=== PATIENT | female | born 1970 | race Two or more races ===

== ENCOUNTER 2024-02-27 08:55 | Outpatient (CLI) | payer OTHER | END 2024-02-27 09:00 | disposition home or self-care (01) | LOC: SONOGRAMA 08:55 | PROVIDERS: ATTEND Pathology Anatomic Pathology & Clinical Pathology | DX: D34 Benign neoplasm of thyroid gland (principal); E06.3 Autoimmune thyroiditis; E03.4 Atrophy of thyroid (acquired) ==

== ENCOUNTER 2025-05-06 11:46 | Outpatient (CLI) | payer OTHER | END 2025-05-06 11:47 | disposition home or self-care (01) | LOC: NUCLEAR 11:46 | DX: M81.0 Age-related osteoporosis without current pathological fracture (principal) ==